=== PATIENT | male | born 1960 | race Two or more races ===

== ENCOUNTER 2018-11-27 21:34 | Inpatient (IN) | payer OTHER ==
[~2018-11-27] VITALS: Ht 154.9 cm; Wt 77.1 kg
[2018-11-28 02:25] VITALS: BP 132/71
--- NOTE | 2018-11-28 02:25 | NUR ---
RN MS OPENING/ ADMITTING NOTES RECEIVED PATIENT FROM [facility] ACCOMPANIED BY 2 EMT AND SAFELY TRANSFERRED TO BED, PATIENT IS ALERT AND ORIENTED X 4 , RESPIRATIONS EVEN AND UNLABORED WITH EQUAL RISE AND FALL OF CHEST, COMPLAINT ABDOMEN PAIN IS STARTING AGAIN, SKIN ASSESSED INTACT, SACRAL INTACT, IV SITE TO RIGHT FA #18G INTACT AND PATENT, NO REDNESS,NO INFILTRATION PRESENT, BELONGINGS LIST DONE PATIENT HAD MONEY AND ID, DEBIT CARDS AND GREEN CARD ID IN [place] AND PREFERRED TO KEEP IN THE SAFE, COUNTED MONEY WITH PATIENT AND VERIFIED WITH ANOTHER STAFF AND PATIENT, MADE PATIENT AWARE RECEIPT FOR BELONGINGS WILL BE IN RUSTIC FENCE [employer]ILDER SAFE, PATIENT VERBALIZE HE UNDERSTANDS SIGNED BELONGINGS LIST. BELONGINGS LIST DROPPED OFF IN RN RUSTIC FENCE BUILDER SAFE AND LOG BOOK SIGNED WITH RN SUP. ORIENTED TO STAFF AND CALL LIGHT AND KEPT WITHIN REACH, SAFETY PRECAUTIONS IN PLACE, LOW BED AND LOCKED, BED ALARM IN PLACE AT THIS TIME FOR FALL PRECAUTIONS, PATIENT IS NPO AT THIS TIME, ALL NEEDS ATTENDED, WILL CONTINUE TO MONITOR.
--- NOTE | 2018-11-28 03:00 | NUR ---
RN MS NOTES MD AWARE OF NEW ADMISSION
[2018-11-28] MEDS ORDERED: IBUP100O19 PO (03:12)
[2018-11-28] MEDS ORDERED: OMEG1CAP55 PO (03:12)
[2018-11-28] MEDS ORDERED: ASPI-1169 PO (03:12)
[2018-11-28] MEDS ORDERED: METF-442 PO (03:12)
[2018-11-28] MEDS ORDERED: LORA10TA7 PO (03:12)
[2018-11-28] MEDS ORDERED: ATOR10TA PO (03:12)
[2018-11-28] MEDS ORDERED: OMEP20CA10 PO (03:12)
--- NOTE | 2018-11-28 03:30 | NUR ---
RN MS NOTES PATIENT COMPLAINT OF PAIN TO ABD 08/02 MD AWARE WITH NEW ORDER NOTED, READ BACK AND CARRIED OUT 1. DILAUDID 1MG IV Q3H PRN 2. NPO
[2018-11-28] MEDS: HYDROMORPHONE INJ 2 MG/ML DISP.SYRIN IV PRN ×3 (03:54→17:09)
--- NOTE | 2018-11-28 03:54 | NUR ---
JOI MEEKS NOTES DILAUDID 1MG/0.5ML GIVEN ORDERED AND REST WASTED WITH ANOTHER RN Addendum: 11/28/18 at 0502 by COOPER BLOOM RN 1 MG WASTED
[2018-11-28] MEDS ORDERED: HYDROMORPHONE 1 MG/1 ML DISP.SYRIN IV PRN (04:00)
[2018-11-28] MEDS ORDERED: ONDANSETRON HCL/PF 4 MG/2 ML VIAL IVP PRN (06:30)
[2018-11-28] MEDS ORDERED: PIPERACILLIN /TAZOBACTAM 3.375 G in IV D5W 50 ML IV SCH (06:30)
--- NOTE | 2018-11-28 06:45 | NUR ---
RN CLOSING NOTES PATIENT REMAINS IN BED SLEEPING BUT EASILY AROUSABLE, RESPIRATIONS EVEN AND UNLABORED WITH EQUAL RISE AND FALL OF CHEST, NO C/O PAIN AT THIS TIME, PATIENT IS NPO, IV SITE TO RIGHT FA #18G INTACT AND PATENT, NO REDNESS, NO INFILTRATION , REMAINS AFEBRILE NO C/O OF N/V/D. NEW ORDERS FOR IVF UNVERIFIED AT THIS TIME UNABLE TO HANG WILL CONTINUE TO MONITOR AND ATB ZOSYN WILL WAIT FOR PHARM TO DELIVER AND ENDORSE TO NEXT SHIFT AWAITING VERIFICATION. ALL NEEDS ATTENDED WILL CONTINUE TO MONITOR AND ENDORSE TO NEXT SHIFT FOR CONTINUITY OF CARE. REMAINS COMFORTABLE.
[2018-11-28] MEDS ORDERED: PIPERACILLIN /TAZOBACTAM 3.375 G in IV D5W 50 ML IV ONE (07:00)
[2018-11-28] MEDS: IV D5/0.45 NACL 1,000 ML IV PRN (07:10)
[2018-11-28 07:21] LABS: BASOPHILS % (AUTO) 0.7 % (0.0-2.0); EOSINOPHILS % (AUTO) 4.7 % (0.0-6.0); HEMATOCRIT 41 % (39-51); HEMOGLOBIN 13.8 g/dL (13.5-17.5); LYMPHOCYTES # (AUTO) 1.6 /CMM (0.8-4.8); LYMPHOCYTES % (AUTO) 27.1 % (20.0-44.0); MEAN CORPUSCULAR HGB CONC 34 g/dl (31.0-36.0); MEAN CORPUSCULAR VOLUME 97 fL (80-96); MONOCYTES # (AUTO) 0.8 /CMM (0.1-1.30); MONOCYTES % (AUTO) 13.7 % (2.0-12.0); NEUTROPHILS # (AUTO) 3.2 /CMM (1.8-8.9); NEUTROPHILS % (AUTO) 53.8 % (43.0-81.0); PLATELET COUNT (AUTO) 229 /CMM (150-450); WHITE BLOOD COUNT (AUTO) 5.9 K/uL (4.3-11.0)
[2018-11-28 07:37] LABS: CALCIUM, SERUM 9.2 mg/dL (8.5-10.1); CREATININE 0.9 mg/dL (0.6-1.3); POTASSIUM 4.6 mmol/L (3.5-5.1)
[2018-11-28 07:43] LABS: ALBUMIN 3.1 g/dL (3.4-5.0); BILIRUBIN,TOTAL 0.7 mg/dL (0.2-1.0); MAGNESIUM 1.9 mg/dL (1.8-2.4); PHOSPHORUS 4.6 mg/dL (2.5-4.9); TOTAL PROTEIN, SERUM 8.2 g/dL (6.4-8.2)
[2018-11-28 07:47] LABS: THYROID STIMULATING HORMONE 0.732 uIU/mL (0.358-3.74)
[2018-11-28 08:00] VITALS: BP 127/69
[2018-11-28 08:33] VITALS: BP 127/69
[2018-11-28] MEDS: PANTOPRAZOLE 40 MG VIAL IV SCH (09:31)
[2018-11-28] MEDS: PIPERACILLIN /TAZOBACTAM 3.375 G in IV D5W 100 ML IV SCH ×2 (13:16→20:56)
[2018-11-28] MEDS: ACETAMINOPHEN 650 MG/SUPP.RECT RC PRN (15:30)
--- NOTE | 2018-11-28 15:36 | NUR ---
PT C/O TEMP 102 ALSO WITH BP 163/85 HEART RATE [address] MARIE INFORMED , WILL SEE PATIENT PT GIVEN TYLENOL SUPP X1 WILL CONTINUE TO MONITOR
[2018-11-28 15:42] VITALS: BP 163/85
[2018-11-28 16:00] VITALS: BP 163/85
[2018-11-28] MEDS ORDERED: LORAZEPAM INJ 2 MG/ML VIAL IV PRN (18:30)
[2018-11-28 19:52] LABS: APPEARANCE,URINE CLEAR (CLEAR); BILIRUBIN,URINE NEGATIVE (NEGATIVE); BLOOD, URINE 1+ Ery/uL (NEGATIVE); COLOR,URINE YELLOW (YELLOW); KETONES,URINE 1+ (NEGATIVE); LEUKOCYTE ESTERASE ,URINE NEGATIVE (NEGATIVE); NITRITE, URINE NEGATIVE (NEGATIVE); PROTEIN,URINE NEGATIVE (NEGATIVE); UGLUCOSE NEGATIVE (NEGATIVE)
[2018-11-28 20:26] LABS: BACTERIA,URINE Rare /HPF (None Seen); SQUAMOUS EPITHELIAL CELL,UR 0-2 /HPF (None Seen); WBC,URINE 0-2 /HPF (0-3)
--- NOTE | 2018-11-28 20:36 | NUR ---
RECEIVED PT IN BED, AWAKE ALERT AND ORIENTEDX4. BREATHING EVEN AND UNLABORED ON ROOM AIR. NO SOB NOTED. NO COMPLAINT OF PAIN OR DISCOMFORT AT THE TIME. IV ACCESS ON THE R FA #18G WITH D5 1/2NS @80ML/HR. REMAINS NPO. BED IN LOCKED POSITION, CALL LIGHT WITHIN REACH AT ALL TIMES, WILL CONTINUE TO MONITOR.
[2018-11-28 21:13] VITALS: BP 120/72
[2018-11-29] MEDS: IV D5/0.45 NACL 1,000 ML IV PRN (02:35)
[2018-11-29] MEDS: HYDROMORPHONE INJ 2 MG/ML DISP.SYRIN IV PRN ×4 (03:18→21:03)
[2018-11-29] MEDS: PIPERACILLIN /TAZOBACTAM 3.375 G in IV D5W 100 ML IV SCH ×3 (04:46→21:02)
--- NOTE | 2018-11-29 06:32 | NUR ---
RN MS CLOSING NOTES PT REMAINS IN BED, AWAKE ALERT AND ORIENTEDX4. BREATHING EVEN AND UNLABORED ON ROOM AIR. NO SOB NOTED. NO COMPLAINT OF PAIN OR DISCOMFORT AT THE TIME. IV ACCESS ON THE R FA #18G WITH D5 1/2NS @80ML/HR. REMAINS NPO. BED IN LOCKED POSITION, CALL LIGHT WITHIN REACH AT ALL TIMES, WILL ENDORSE TO DAY NURSE FOR DANNA
[2018-11-29 07:07] LABS: BASOPHILS # (AUTO) 0.1 /CMM (0.0-0.2); BASOPHILS % (AUTO) 0.8 % (0.0-2.0); EOSINOPHILS % (AUTO) 4.2 % (0.0-6.0); HEMATOCRIT 40 % (39-51); HEMOGLOBIN 13.7 g/dL (13.5-17.5); LYMPHOCYTES # (AUTO) 2.3 /CMM (0.8-4.8); LYMPHOCYTES % (AUTO) 30.3 % (20.0-44.0); MEAN CORPUSCULAR HGB CONC 34 g/dl (31.0-36.0); MEAN CORPUSCULAR VOLUME 97 fL (80-96); MONOCYTES # (AUTO) 1.2 /CMM (0.1-1.30); MONOCYTES % (AUTO) 16.3 % (2.0-12.0); NEUTROPHILS # (AUTO) 3.6 /CMM (1.8-8.9); NEUTROPHILS % (AUTO) 48.4 % (43.0-81.0); PLATELET COUNT (AUTO) 233 /CMM (150-450); RED BLOOD CELL COUNT(AUTO) 4.17 MIL/uL (4.5-6.0); WHITE BLOOD COUNT (AUTO) 7.5 K/uL (4.3-11.0)
--- NOTE | 2018-11-29 07:25 | NUR ---
MS/RN OPENING NOTE THE PATIENT IS RECEIVED IN BED. ALERT AND ORIENTED X4. [place] SPEAKER. DENIES PAIN AT THIS TIME. RESPIRATION REGULAR AND UNLABORED. DENIES SOB. NPO. RFA G 18 PATENT AND D1/2 NS INFUSING AT 80ML/HR AND NO S/S INFILTRATION NOTED. BED LOW AND LOCKED. SIDE RAILS UP X3. CALL LIGHT WITHIN REACH. WILL CONTINUE TO MONITOR.
[2018-11-29 07:26] LABS: CALCIUM, SERUM 8.6 mg/dL (8.5-10.1); CREATININE 0.8 mg/dL (0.6-1.3); POTASSIUM 3.9 mmol/L (3.5-5.1)
[2018-11-29 07:31] LABS: BILIRUBIN,DIRECT 0.3 mg/dL (0.0-0.2); BILIRUBIN,TOTAL 0.8 mg/dL (0.2-1.0); MAGNESIUM 1.8 mg/dL (1.8-2.4); PHOSPHORUS 3.4 mg/dL (2.5-4.9)
--- NOTE | 2018-11-29 07:40 | NUR ---
MS/RN NOTE THE PATIENT COMPLAINS OF ABDOMINAL PAIN 07/02. DILAUDID 1 MG IV PUSH IS GIVEN. WILL CONTINUE TO MONITOR.
[2018-11-29 07:49] VITALS: BP 124/74
[2018-11-29 07:58] LABS: LYMPHOCYTES % (MANUAL) 28 % (16-48); NEUTROPHILS % (MANUAL) 52 (42-76)
[2018-11-29 08:01] LABS: EOSINOPHILS % (MANUAL) 5 % (0-4); MONOCYTES % (MANUAL) 15 % (0-11.0)
--- NOTE | 2018-11-29 08:10 | NUR ---
MS/RN NOTE THE PATIENT VERBALIZED RELIEF FROM ABDOMINAL PAIN AND RATES PAIN 1/10.
[2018-11-29] MEDS: PANTOPRAZOLE 40 MG VIAL IV SCH (08:18)
[2018-11-29 08:21] VITALS: BP 124/76
[2018-11-29] MEDS ORDERED: diphenhydrAMINE HCL 50 MG/ML VIAL IV PRN (12:00)
--- NOTE | 2018-11-29 16:01 | NUR ---
MS/RN NOTE ZOSYN DUE AT 1300 IS ADMINISTERED LATE DUE TO PATIENT GETTING HIDA SCAN. DR JOSHUA IS AWARE.
--- NOTE | 2018-11-29 16:05 | NUR ---
MS/RN NOTE PATIENT COMPLAINS OF ABDOMINAL PAIN 08/02. PRN DILAUDID IV PUSH IS GIVEN. WILL CONTINUE TO MONITOR.
--- NOTE | 2018-11-29 16:40 | NUR ---
MS/RN NOTE THE PATIENT VERBALIZED RELIEF FROM ABDOMINAL PAIN WITH ADMINISTRATION OF DILAUDID.
--- NOTE | 2018-11-29 17:30 | NUR ---
MS/RN NOTE RECEIVED ORDER FROM DR JOSHUA TO START CLEAR LIQUID DIET FROM 11/29/18 DINNER. THE ORDER IS READ BACK, VERIFIED. NOTED AND CARRIED OUT.
--- NOTE | 2018-11-29 18:02 | NUR ---
MS/RN CLOSING NOTE THE PATIENT ALERT AND ORIENTED DX4. DENIES PAIN AT THIS TIME. IN ROOM AIR AND DENIES SOB. RESPIRATION REGULAR AND UNLABORED. ABDOMEN SOFT AND NON-DISTENDED. PATIENT IS ON CLEAR LIQUID DIET. RFA G 18 AND RIGHT HAND G 22 IV LINES PATENT AND IV ANTIBIOTIC AND FLUID INFUSING WITH NO S/S INFILTRATION. BED LOW AND LOCKED. SIDE RAILS UP X3. CALL LIGHT WITHIN REACH. WILL ENDORSE TO EXPORT FREIGHT MANAGER.
--- NOTE | 2018-11-29 19:50 | NUR ---
RN MS OPENING NOTES RECEIVED PT IN BED, AWAKE ALERT AND ORIENTEDX3, BREATHING EVEN AND UNLABORED ON ROOM AIR. NO SOB NOTED. NO COMPLAINT OF PAIN OR DISCOMFORT AT THE TIME. IV ACCESS ON THE R WRIST #22G, AND R HAND #22 WITH D5 1/2 NS @80ML/HR. BED IN LOCKED POSITION, CALL LIGHT WITHIN REACH AT ALL TIMES, WILL CONTINUE TO MONITOR.
[2018-11-29 20:00] VITALS: BP 144/77
[2018-11-29] MEDS ORDERED: POLYETHYLENE GLYCOL 3350 17 GM POWD.PACK PO PRN (20:30)
--- NOTE | 2018-11-29 20:35 | NUR ---
SEEN BY BART JETT, ORDERED MIRALAX AND STOOL OB
[2018-11-30] MEDS: HYDROMORPHONE INJ 2 MG/ML DISP.SYRIN IV PRN ×3 (01:26→09:02)
[2018-11-30] MEDS: IV D5/0.45 NACL 1,000 ML IV PRN (02:01)
[2018-11-30] MEDS: PIPERACILLIN /TAZOBACTAM 3.375 G in IV D5W 100 ML IV SCH ×2 (05:31→12:18)
--- NOTE | 2018-11-30 06:08 | NUR ---
RN MS CLOSING NOTES PT REMAINS IN BED, AWAKE ALERT AND ORIENTEDX4. BREATHING EVEN AND UNLABORED ON ROOM AIR. NO SOB NOTED. NO COMPLAINT OF PAIN OR DISCOMFORT AT THE TIME. IV ACCESS ON THE R FA #18G WITH D5 1/2NS @80ML/HR. REMAINS NPO FOR CT SCAN IN AM. BED IN LOCKED POSITION, CALL LIGHT WITHIN REACH AT ALL TIMES, WILL ENDORSE TO DAY NURSE FOR DANNA
[2018-11-30 06:42] LABS: BASOPHILS # (AUTO) 0.1 /CMM (0.0-0.2); BASOPHILS % (AUTO) 0.9 % (0.0-2.0); EOSINOPHILS % (AUTO) 5.3 % (0.0-6.0); HEMATOCRIT 39 % (39-51); HEMOGLOBIN 13.5 g/dL (13.5-17.5); LYMPHOCYTES # (AUTO) 2.5 /CMM (0.8-4.8); LYMPHOCYTES % (AUTO) 41.4 % (20.0-44.0); MEAN CORPUSCULAR HGB CONC 35 g/dl (31.0-36.0); MEAN CORPUSCULAR VOLUME 97 fL (80-96); MONOCYTES % (AUTO) 15.8 % (2.0-12.0); NEUTROPHILS # (AUTO) 2.2 /CMM (1.8-8.9); NEUTROPHILS % (AUTO) 36.6 % (43.0-81.0); PLATELET COUNT (AUTO) 246 /CMM (150-450); RED BLOOD CELL COUNT(AUTO) 4.05 MIL/uL (4.5-6.0); WHITE BLOOD COUNT (AUTO) 6.1 K/uL (4.3-11.0)
[2018-11-30 07:03] LABS: CALCIUM, SERUM 8.6 mg/dL (8.5-10.1); CREATININE 0.9 mg/dL (0.6-1.3); MAGNESIUM 1.9 mg/dL (1.8-2.4); PHOSPHORUS 3.1 mg/dL (2.5-4.9); POTASSIUM 3.9 mmol/L (3.5-5.1)
--- NOTE | 2018-11-30 07:30 | NUR ---
MS RN OPENING NOTES RECEIVED PATIENT IN STABLE CONDITION. IN NO APPARENT DISTRESS. BEDSIDE RAILS ARE UPX2. BED IS LOCKED AND LOWERED. CALL LIGHT IS WITHIN REACH. IV LINE IS INTACT AND PATENT. WILL CONTINUE TO MONITOR PATIENT.
[2018-11-30 08:00] VITALS: BP 136/77
[2018-11-30] MEDS: PANTOPRAZOLE 40 MG VIAL IV SCH (09:01)
[2018-11-30] MEDS ORDERED: CT SWABBABLE VALVE TRANS SET 1 EA INFUS.SET MC ONE (09:33)
[2018-11-30] MEDS ORDERED: IOHEXOL-300 100 ML VIAL IV ONE (09:33)
[2018-11-30] MEDS ORDERED: IV NS 0.9% 250 ML IV ONE (09:33)
[2018-11-30] MEDS ORDERED: BISACODYL SUPP (10 MG) 10 MG/SUPP.RECT SUPP.RECT RC PRN (14:00)
[2018-11-30] MEDS ORDERED: BISACODYL (5 MG) 5 MG TABLET.DR PO PRN (14:00)
[2018-11-30] MEDS: SENNOSIDES/DOCUSATE SODIUM 1 TAB TABLET PO SCH (14:19)
[2018-11-30] MEDS: POLYETHYLENE GLYCOL 3350 17 GM POWD.PACK PO SCH (14:20)
[2018-11-30 16:00] VITALS: BP 152/88
[2018-11-30] MEDS: ACETAMINOPHEN 650 MG/SUPP.RECT RC PRN ×2 (16:11→21:31)
--- NOTE | 2018-11-30 18:30 | NUR ---
MS RN CLOSING NOTES PATIENT IS IN STABLE CONDITION. IN NO APPARENT DISTRESS. BEDSIDE RAILS ARE UPX2. BED IS LOCKED AND LOWERED. CALL LIGHT IS WITHIN REACH. IV LINE IS INTACT AND PATENT. ALL NEEDS WERE MET. WILL ENDORSE CARE TO ROOFING MACHINE TENDER NURSE FOR DANNA.
--- NOTE | 2018-11-30 19:00 | NUR ---
MS RN OPENING NOTES Received patient awake on bed on Narayan's position. With patent peripheral IV access, SL. Denies any discomfort at this time. Kept comfortable and instructed patient to call for the nurse for any unusualities. Call light at bedside. Will continue to monitor accordingly.
[2018-11-30 20:00] VITALS: BP 133/77
[2018-11-30 22:43] LABS: ALBUMIN 3.2 g/dL (3.4-5.0); BILIRUBIN,DIRECT 0.2 mg/dL (0.0-0.2); BILIRUBIN,TOTAL 0.6 mg/dL (0.2-1.0); TOTAL PROTEIN, SERUM 8.7 g/dL (6.4-8.2)
--- NOTE | 2018-12-01 07:00 | NUR ---
MS RN CLOSING NOTES Patient awake on bed watching TV. No complaints made within the shift. No discomfort noted. On RA, no SOB/dyspnea noted. All needs attended. Kept clean, dry and comfortable. Call light at bedside. For possible d/c today, cleared for d/c from the GI perspective. Endorsed to the next shift.
--- NOTE | 2018-12-01 07:25 | NUR ---
MS/RN OPENING NOTE THE PATIENT ALERT AND ORIENTED X4. DENIES PAIN AT THIS TIME. IN ROOM AIR AND DENIES SOB. RESPIRATION REGULAR AND UNLABORED. IN NO APPARENT DISTRESS. ABDOMEN SOFT AND NON-DISTENDED. RFA G 18 PATENT AND SALINE LOCKED. BED LOW AND LOCKED. SIDE RAILS UP X3. CALL LIGHT WITHIN REACH. WILL CONTINUE TO MONITOR.
[2018-12-01 07:44] LABS: CALCIUM, SERUM 9.3 mg/dL (8.5-10.1); CREATININE 0.8 mg/dL (0.6-1.3); POTASSIUM 3.7 mmol/L (3.5-5.1)
[2018-12-01 07:49] LABS: ALBUMIN 3.2 g/dL (3.4-5.0); BILIRUBIN,DIRECT 0.2 mg/dL (0.0-0.2); BILIRUBIN,TOTAL 0.7 mg/dL (0.2-1.0); MAGNESIUM 1.9 mg/dL (1.8-2.4); PHOSPHORUS 3.7 mg/dL (2.5-4.9); TOTAL PROTEIN, SERUM 8.7 g/dL (6.4-8.2)
[2018-12-01 08:00] VITALS: BP 130/79
[2018-12-01] MEDS: PANTOPRAZOLE 40 MG VIAL IV SCH (08:48)
[2018-12-01] MEDS: SENNOSIDES/DOCUSATE SODIUM 1 TAB TABLET PO SCH (08:48)
[2018-12-01] MEDS: POLYETHYLENE GLYCOL 3350 17 GM POWD.PACK PO SCH (08:48)
--- NOTE | 2018-12-01 13:18 | NUR ---
MS/RN NOTE THE PATIENT GETTING DISCHARGED TO HOME. OFFERED INFLUENZA VACINE BUT HE STATED THAT HE RECEIVED THE VACCINE SEP, 2018. PATIENT REFUSED PNEUMOCOCCAL VACINE. DISCHARGE EDUCATION PROVIDED. THE PATIENT VERBALIZED UNDERSTANDING. HOSPITAL PROVIDED $2 FOR BUS. THE PATIENT STABLE. IN NO APPARENT DISTRESS. RESPIRATION REGULAR AND UNLABORED. DENIES PAIN. DENIES SOB. VITAL SIGNS WNL. LEAVING THE HOSPITAL BY HIMSELF AND IN STABLE CONDITION.
== END 2018-12-01 13:00 | disposition home or self-care (01) ==
LOC: EDBD 11-28 02:09 → MED 11-28 02:09
PROVIDERS: ADMIT Internal Medicine; ATTEND Internal Medicine
DX: K76.0 Fatty (change of) liver, not elsewhere classified (principal); E78.5 Hyperlipidemia, unspecified; F10.239 Alcohol dependence with withdrawal, unspecified; F10.20 Alcohol dependence, uncomplicated; I10 Essential (primary) hypertension; Z87.891 Personal history of nicotine dependence; Y90.9 Presence of alcohol in blood, level not specified; Z79.82 Long term (current) use of aspirin; Z79.84 Long term (current) use of oral hypoglycemic drugs; T78.40XA Allergy, unspecified, initial encounter; X58.XXXA Exposure to other specified factors, initial encounter; R91.8 Other nonspecific abnormal finding of lung field
CPT/HCPCS: 36415; 71045-TC; 78226; 80048-TC; 80053-TC; 80061-TC; 80076-TC; 81000-TC; 82150-TC; 82247-TC; 82248-TC; 82962-TC; 83690-TC; 83735-TC; 84100-TC; 84443-TC; 85025-TC; 87040-TC; 87081-TC; 87086-TC; A9537; C9113; G0378; J1170; J1200; J2405; J2543; J3490; J7030; J7050; J7060; Q9967